=== PATIENT | female | born 1980 | race Two or more races ===

== ENCOUNTER 2024-09-10 09:45 | Outpatient (RCR) | payer MEDICAID, SELFPAY ==
--- NOTE | 2024-09-10 13:50 | CTCCONSULT_ITS ---
[facility] [address] [place], [place] [address] Consultation Note Date: 09/10/2024 MR#: [id number] Name: LAZARA LIZ : 1980 Dx: C50.211 Malignant neoplasm of R breast Referring physician. Ibeth Umaña, [facility] Reason for consultation. Patient with recent diagnosis of right breast CA referred to the cancer center. History of Present Illness: Patient is a 43-year-old [place] lady who had screening mammogram 03/14/2024 which revealed no 3 o'clock position 12 mm mass. After ultrasound 06/18/2024 revealing 1.2 x 1 cm lobulated solid mass in mid medial breast at 3:00 biopsy was recommended. This was performed 07/29/2024 revealing invasive ductal carcinoma 9.5 mm tubular differentiation 2 nuclear pleomorphism 2 mitotic rate 1 overall grade 1. ER 90% positive MN positive HER2/danny negative. Ki-67 10 to 15%. Patient is now referred to the cancer center. Past Medical History: History of asthma chest pain chickenpox diabetes ear infections high blood pressure hives influenza Meds. Sertraline Januvia losartan fenofibrate loratadine metformin pravastatin montelukast Wegovy Allergies erythromycin lisinopril glipizide Toradol ibuprofen Jardiance Family history. Denies breast cancer or other cancers in family. Social history patient originally from [place] of [place] descent Works as a caregiver. Review of Systems: Has felt the breast lump has had chest pains increase in thirst memory loss nausea recent back pain fever shortness of breath sleep problem unexplained fatigue. Physical Exam: General: Well-appearing lady no acute distress HEENT: Atraumatic no cephalic extraocular muscle intact no oral lesions no cervical or supraclavicular apathy CV: There is a palpable lump about 1 cm in diameter at central inner 3 o'clock position of the right breast. No axillary adenopathy palpated. ABD: Soft no organomegaly or tenderness EXT: No signs of clubbing or edema Assessment: Patient with T1 sized right breast mass receptor positive HER2 negative. Plan: Refer to general surgeon for surgery. I have scheduled patient for follow-up visit at the cancer center for any adjuvant therapy. Thank you very much for allowing us to evaluate this patient. Cc: [facility] LOTTIE Valles Electronically signed by: Augustine Bell MD, AROLDOR 09/10/2024 1:48 PM
== END 2024-10-05 23:59 | disposition home or self-care (01) ==
LOC: SCTC 09:45
PROVIDERS: PCP Family Medicine; Referring Provider Nurse Practitioner Obstetrics & Gynecology; Visit Provider Radiology Therapeutic Radiology
DX: C50.811 Malignant neoplasm of overlapping sites of right female breast (principal); Z17.0 Estrogen receptor positive status [ER+]; Z17.21 Progesterone receptor positive status; Z17.32 Human epidermal growth factor receptor 2 negative status
CPT/HCPCS: 99213; G0463

== ENCOUNTER 2024-10-15 13:53 | Outpatient (RCR) | payer MEDICAID, SELFPAY ==
--- NOTE | 2024-10-15 14:29 | CTCFLWUP_ITS ---
[facility] [address], [place] [address] FOLLOW-UP NOTE Date: 10/15/2024 MR#: [id number] Name: LAZARA LIZ : 1980 Dx: C50.211 Malignant neoplasm of upper-inner quadrant of right female breast Due to insurance issues patient just got the approval to see the general surgeon. I rescheduled her for follow-up afterward. Electronically signed by: Augustine Bell M.D. 10/15/2024 2:26 PM
== END 2024-11-04 23:59 | disposition home or self-care (01) ==
LOC: SCTC 13:53
PROVIDERS: PCP Family Medicine; Referring Provider Family Medicine; Visit Provider Radiology Therapeutic Radiology
DX: C50.211 Malignant neoplasm of upper-inner quadrant of right female breast (principal)
CPT/HCPCS: 99213; G0463

== ENCOUNTER 2024-12-26 07:20 | Day surgery (SDC) | payer MEDICAID, SELFPAY ==
[2024-12-25 08:39] VITALS: BMI 42.5
--- NOTE | 2024-12-25 08:49 | EKG_ITS ---
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
[2024-12-25 10:34] LABS: Basophils # (Auto) 0.0 Thou/mm3 (0.0-0.2); Basophils % (Auto) 1 % (0-2.5); Eosinophils # (Auto) 0.3 Thou/mm3 (0.0-0.5); Eosinophils % (Auto) 4 % (0-10); Hematocrit 40.3 % (36.0-46.0); Hemoglobin 13.1 g/dL (12.0-16.0); Immature Granulocytes Auto 0.04 Thou/mm3 (0.00-0.00); Lymphocytes # (Auto) 1.6 Thou/mm3 (1.0-4.8); Lymphocytes % (Auto) 20 % (10-50); Mean Corpuscular HGB Conc 32.5 g/dl (31.0-37.0); Mean Corpuscular Hemoglobin 28.4 pg (25.0-35.0); Mean Corpuscular Volume 87 fL (80-100); Monocytes # (Auto) 0.6 Thou/mm3 (0.0-0.8); Monocytes % (Auto) 8 % (0-12); Neutrophils # (Auto) 5.6 Thou/mm3 (1.8-7.7); Neutrophils % (Auto) 68 % (37-80); Nucleated Red Blood Cell # 0.00 Thou/mm3 (0.00-0.00); Nucleated Red Blood Cell % 0 /100 WBC (0); Platelet Count 426 Thou/mm3 (140-440); RDW Standard Deviation 41.0 fL (36.4-46.3); Red Blood Count 4.62 Miln/mm3 (4.00-5.20); White Blood Count 8.2 Thou/mm3 (3.6-11.0)
[2024-12-25 10:41] LABS: INR 0.9 (0.9-1.3); Partial Thromboplastin Time 26.5 Seconds (22.0-36.0); Prothrombin Time 9.9 Seconds (9.0-12.2)
[2024-12-25 10:42] LABS: HCG,Qualitative Serum Negative
[2024-12-25 10:43] LABS: Alanine Aminotransferase 23 U/L (10-49); Albumin, Serum 4.8 gm/dL (3.5-5.0); Albumin/Globulin Ratio 2.0 (1.2-2.2); Alkaline Phosphatase 56 U/L (46-116); Anion Gap 6 (7-16); Aspartate Amino Transferase < 8 U/L (0-34); BUN/Creatinine Ratio 16 Ratio (12-20); Bilirubin,Total 0.3 mg/dL (0.3-1.2); Blood Urea Nitrogen 11 mg/dL (9-23); Calcium 9.4 mg/dL (8.3-10.6); Calcium (Corrected) 9.4 mg/dL (8.5-10.1); Carbon Dioxide 27.7 mMol/L (20.0-31.0); Chloride 107 mMol/L (98-107); Creatinine (Component) 0.7 mg/dL (0.6-1.3); Estimated Creatinine Clearance 103.7 mL/min (>60); Globulin 2.4 gm/dL (2.3-3.5); Glucose 173 mg/dL (74-106); Osmolality,Calculated 284 (275-295); Potassium 4.5 mMol/L (3.4-5.1); Sodium 141 mMol/L (136-145); Total Protein 7.2 gm/dL (5.7-8.2); eGFR > 60 See Note
[2024-12-26] VITALS (10 sets, daily range): BP systolic 94–132; BP diastolic 52–77; PULSE 76–101; RESP 12–21; TEMP 36–37.1; O2SAT 95–99; BMI 42.0
--- NOTE | 2024-12-26 07:34 | SUR.PREOP ---
Patient expressed gratitude for prayer before their procedure.
[2024-12-26] MEDS: RINGERS LACTATED 1000 ML 1,000 ML 20 ML IV (07:46)
--- NOTE | 2024-12-26 08:30 | XR_ITS ---
EXAMINATION: Nuclear medicine lymph coagulants imaging [place] lymph node study Date and time: December 26, 2024, 0830 hours INDICATIONS: Preop needle localization suspicious nodule 3 o'clock position right breast, lymph node dissection today TECHNIQUE AND FINDINGS: Informed consent provided. Timeout performed. Skin prepped over the right breast in sterile drape applied maximum barrier sterile technique and hygiene 1% lidocaine administered subareolar 2.0 mCi Tc 99m filtered sulfur colloid in reduced retroareolar No imaging Estimated blood loss 0 cc IMPRESSION: Successful sentinel lymph node study as above
--- NOTE | 2024-12-26 08:30 | XR_ITS ---
EXAMINATION: Preop ultrasound-guided needle localization 2:00 right breast mass Right breast sonography Date and time: December 26, 2024, 0859 hours INDICATIONS: BI-RADS 4 suspicious mass 2 o'clock position right breast on outside imaging, localization today for surgical excision TECHNIQUE AND FINDINGS: Grayscale sonographic images right breast BI-RADS 4 suspicious mass 2 o'clock position right breast noted, 21 mm Informed consent provided. Timeout performed. Skin prepped over the breast and sterile drape applied hand hygiene ultrasound sterile technique 1% lidocaine administered for local anesthesia Utilizing ultrasonographic guidance a 5 cm Kopan's needle placed within the breast mass 1 cc methylene blue introduced Hookwire introducer needle withdrawn Estimated blood loss 0 cc Patient in stable condition and completion procedure IMPRESSION: Preop ultrasound-guided needle localization 2:00 right breast mass
--- NOTE | 2024-12-26 11:42 | XR_ITS ---
EXAMINATION: Mammogram breast tissue specimen TECHNIQUE: Single mammographic view of the breast tissue specimen Date and time: December 26, 2024, 1325 hours INDICATIONS: Post surgical decision localized to o'clock nodule right breast today FINDINGS: The localized nodule is in the specimen with margins Breast biopsy marker also depicted IMPRESSION: The localized nodule is in the specimen with margins
--- NOTE | 2024-12-26 13:58 | SUR.PHASEI ---
1350 patient arrived to recovery resting comfortably in [facility], on oxygen 10L via oxy mask with an oral airway in place, breathing unlabored, vital signs stable, dressing intact to chest; sutures, adaptic, fluffs, breast binder, no bleeding noted, report received from Dr. Loera/Bernarda JAY and Martha QUEEN
--- NOTE | 2024-12-26 13:59 | ESOP_ITS ---
Date of Procedure 12/26/24 Pre Op Diagnosis Infiltrating ductal carcinoma of the right breast at 3 o'clock position Post Op Diagnosis Same Procedure Guidewire localization of the mass in the right breast and partial mastectomy [place] node biopsy of the right axilla Findings Patient was found to have palpable lesion at 3 o'clock position on the right breast. This was localized by the radiologist with a guidewire and sentinel node injection was then done with radioisotope. Procedure Description Patient was brought to the operating room and given LMA anesthesia. Right breast and the right upper extremity and axilla were prepped with ChloraPrep solution and draped in a sterile manner. Timeout was performed.. Then I made an incision over the right axilla using a neoprobe to find any activity. There was some uptake in the right axilla and made an incision for about 6 cm. Subcutaneous tissue was divided and using a neoprobe I identified 2 sentinel nodes that showed increased uptake of the isotope. One of them are fairly large measuring 2 cm in diameter the other 1 was small maybe measuring is less than a centimeter in diameter. Then after checking for the bleeding points the axillary tissue was approximated with 3-0 chromic. Then injected local anesthesia to the edges of the skin and 4-0 Monocryl was used to approximate the axillary incision. Then attention was turned onto the right breast. This lesion was almost palpable and guidewire has localized to the medial. Circumareolar incision was made and lifting the skin flaps I dissected out the breast tissue and identified the palpable lump which was a cancer. I made a wide excision with the guidewire at the center of the specimen. Then mammogram x-ray was obtained which showed the lesion to be at the center with good margin all around. I also removed some additional tissues from the anterior portion at the site of tumor. Some inferior margin nodes were removed. They appeared soft and there were not suspicious for any extension of the cancer. The bleeding points were controlled with cautery and I used hot packs to look for any capillary bleeding. Then the subcutaneous tissue was closed with 3-0 chromic and the skin by a 4-0 Monocryl subcuticular stitch. I injected half percent Marcaine plain over the edges before closure. Dressing was applied with Adaptic and 4 x 4 gauze and patient tolerated procedure well. Anesthesia other (General LMA) Pathology / specimen Other (1. 2 sentinel lymph nodes from the right axilla, #2 right breast cancer with a guidewire at the center, #3 additional anterior and inferior margin) IVF Infused 600 Estimated Blood Loss 75 Condition Stable Disposition PACU Surgeon Rosanna Nur MD Surgical Staff Operation Date: 12/26/24 12:00 Case Staff Anesthesiologist: Florentino Loera RN First Assistant: Hilaria Ozuna
--- NOTE | 2024-12-26 14:47 | SUR.PHASEII ---
1449 Telephone order read-back received from Dr. Loera for pain pill for patient prior to discharge, [place] 5/325 oral tab x1 order received, will enter order in EMR and administer medication per anesthesia order
[2024-12-26] MEDS: ONDANSETRON INJ 2 MG/ML INJ 2 ML 4 MG IVP (14:53)
--- NOTE | 2024-12-26 15:05 | SUR.PHASEII ---
1453 patient complained of nausea, Zofran 4mg via IVP administered per anesthesia order, will monitor 1505 medication effective patient denies nausea
[2024-12-26] MEDS: HYDROcodone/APAP 5/325 TABLET 1 TAB PO (15:10)
--- NOTE | 2024-12-26 15:35 | SUR.PHASEII ---
1535 Patient meets discharge criteria from recovery, awake and alert, breathing unlabored, vital signs stable, dressing intact; no bleeding noted, per patient her pain is tolerable; administer pain pill, patient shared her pain is improving, patient ate a jello and drinking 7up; denies nausea, assisted with dressing into her clothing by her , discharge instructions given to patient and patients , signed discharge instructions. Patient given all her belongings prior to discharge, transported via wheelchair and left in a private vehicle
== END 2024-12-26 15:35 | disposition home or self-care (01) ==
PROVIDERS: Anesthesiology; Family Provider Surgery; PCP Family Medicine; Referring Provider Surgery; Visit Provider Surgery
PROC: (CPT 19301; principal; 2024-12-26 11:45)
DX: C50.911 Malignant neoplasm of unspecified site of right female breast (principal); C50.811 Malignant neoplasm of overlapping sites of right female breast; C77.3 Secondary and unspecified malignant neoplasm of axilla and upper limb lymph nodes; Z01.810 Encounter for preprocedural cardiovascular examination; E11.9 Type 2 diabetes mellitus without complications; I10 Essential (primary) hypertension; J45.909 Unspecified asthma, uncomplicated
CPT/HCPCS: 19301; 38525; 38792; 19125; 36415; 76098; 80053; 84703; 85025; 85610; 85730; 93005; A4217; A4649; A9541; J0131; J0690; J1100; J2250; J2371; J2405; J2598; J2704; J3010; J3490; J7120; A9270

== ENCOUNTER 2025-01-20 11:41 | Outpatient (RCR) | payer MEDICAID, SELFPAY ==
--- NOTE | 2025-01-20 12:28 | CTCFLWUP_ITS ---
[facility] [address] [place], [place] [address] FOLLOW-UP NOTE Date: 01/20/2025 MR#: [id number] Name: LAZARA LIZ : 1980 Dx: C50.211 Malignant neoplasm of upper-inner quadrant of right female breast Identification. Patient underwent right partial mastectomy and sentinel node biopsy of the right axilla performed with Dr. Soria 12/26/2024. Final pathology invasive carcinoma 2.5 x 1.5 x 1.3 cm intermediate grade with 1 of 3 sentinel lymph nodes positive for met measuring 1.2 cm. Ki-67 20 to 30%. ER/VA positive HER2/danny negative. pT2N1a stage IIB Saw patient today with good healing in the surgerized site and patient recovering satisfactorily. Oncotype DX was ordered and Dr. Ward scheduled to see her soon. I scheduled her for 1 month follow-up. Electronically signed by: Augustine Bell M.D. 01/20/2025 12:25 PM
== END 2025-02-04 23:59 | disposition home or self-care (01) ==
LOC: SCTC 11:41
PROVIDERS: PCP Family Medicine; Referring Provider Family Medicine; Visit Provider Radiology Therapeutic Radiology
DX: C50.211 Malignant neoplasm of upper-inner quadrant of right female breast (principal); Z17.0 Estrogen receptor positive status [ER+]; Z17.21 Progesterone receptor positive status; Z17.32 Human epidermal growth factor receptor 2 negative status; Z90.11 Acquired absence of right breast and nipple
CPT/HCPCS: 99213; G0463